=== PATIENT | female | born 1960 | race Caucasian/White ===

== ENCOUNTER 2016-07-05 14:07 | Emergency (ER) | payer OTHER ==
[2016-07-05] MEDS ORDERED: PREDNISONE 20 MG TABLET ONE (16:18)
[2016-07-05] MEDS ORDERED: KETOROLAC TROMETHAMINE 60 MG/2 ML VIAL ONE (16:18)
== END 2016-07-05 16:45 | disposition home or self-care (01) ==
LOC: ED 14:07 → SUPCPDRO 14:07 → ED 16:45
DX: M54.42 Lumbago with sciatica, left side (principal)